=== PATIENT | female | born 2005 | race Caucasian/White ===

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

== ENCOUNTER 2023-03-25 15:57 | Outpatient (RCR) | payer OTHER | END 2023-04-17 | disposition home or self-care (01) | DX: M54.2 Cervicalgia (principal); M26.609 Unspecified temporomandibular joint disorder, unspecified side ==

== ENCOUNTER 2023-06-12 08:45 | Outpatient (RCR) | payer OTHER | END 2023-06-17 | disposition home or self-care (01) | DX: M54.2 Cervicalgia (principal); M26.609 Unspecified temporomandibular joint disorder, unspecified side ==

== ENCOUNTER 2023-07-02 08:57 | Outpatient (RCR) | payer OTHER | END 2023-07-17 | disposition home or self-care (01) | DX: M54.2 Cervicalgia (principal); M26.609 Unspecified temporomandibular joint disorder, unspecified side ==